=== PATIENT | female | born 1970 | race Caucasian/White ===

== ENCOUNTER 2017-09-24 15:46 | Emergency (ER) | payer OTHER ==
[~2017-09-24] VITALS: Ht 154.9 cm; Wt 83.0 kg
[~2017-09-24 15:46] MED LIST: CETI10 PO; LORA-392 PO; MECL25 PO; MULTCAP PO; VALT500T PO
[2017-09-24 15:49] VITALS: BP 156/81; PULSE 92; RESP 19; TEMP 98.4; O2SAT 100
--- NOTE | 2017-09-24 16:20 | PD ---
HPI Chief Complaint: Syncope/Near-Syncope Time Seen by Provider: 16:08 Travel History International Travel<30 days: No Contact w/Intl Traveler<30days: No Traveled to known affect area: No History of Present Illness HPI 47 year old female presents with a chief complaint of a syncopal episode. She states that this has happened one time previously when she was giving blood but this episode was not the same. She felt a sensation of burning in the epigastric region of her abdomen with a gassy feeling and the began to feel like her BP was dropping. She went to splash water on her face and noticed that she was pale. She then called a coworker to help her. The coworker states that she did in fact lose consciousness but, she denies this. She had no chest pain, palpitations, shortness of breath. No vision changes or headaches. Her last Menstrual period was normal, no excess bleeding. No recent prolonged travel, no recent surgery. PFSH Past Medical History Anxiety: Yes Diminished Hearing: No ?: Not : 2 Para: 2 Tubal Ligation: Yes Past Surgical History Section: Yes Tonsillectomy: Yes Other Surgery: Yes (UMBILICAL HERNIA REPAIRED) Social History Alcohol Use: No Tobacco Use: No Substance Use: No Allergies-Medications (Allergen,Severity, Reaction): Coded Allergies: terbutaline (Unverified Allergy, Severe, HYPOTENSION, 09/24/17) Reported Meds & Prescriptions Reported Meds & Active Scripts Active No Active Prescriptions or Reported Medications Review of Systems Except as stated in HPI: all other systems reviewed are Neg General / Constitutional: No: Fever, Chills Eyes: No: Diploplia, Blurred Vision HENT: Positive: Lightheadedness, No: Headaches, Vertigo Cardiovascular: No: Chest Pain or Discomfort, Palpitations, Irregular Rhythm, Tachycardia Respiratory: No: Shortness of Breath Gastrointestinal: Positive: Nausea, Abdominal Pain Musculoskeletal: No: Weakness Neurologic: Positive: Syncope, No: Weakness, Tremor, Ataxia, Headache, Change in Mentation, Paresthesia, Incontinence, Seizures Physical Exam Narrative GENERAL: patient is laying in bed in no acute distress. SKIN: Warm and dry. HEAD: Atraumatic. Normocephalic. EYES: Pupils equal and round. No scleral icterus. No injection or drainage. ENT: No nasal bleeding or discharge. Mucous membranes pink and moist. NECK: Trachea midline. No JVD. CARDIOVASCULAR: Regular rate and rhythm. RESPIRATORY: No accessory muscle use. Clear to auscultation. Breath sounds equal bilaterally. GASTROINTESTINAL: Abdomen soft, non-tender, nondistended. Hepatic and splenic margins not palpable. MUSCULOSKELETAL: Extremities without clubbing, cyanosis, or edema. No obvious deformities. NEUROLOGICAL: Awake and alert. No obvious cranial nerve deficits. Motor grossly within normal limits. Five out of 5 muscle strength in the arms and legs. Normal speech. PSYCHIATRIC: Appropriate mood and affect; insight and judgment normal. Data Data Last Documented VS Vital Signs Date Time Temp Pulse Resp B/P (MAP) Pulse Ox O2 Delivery O2 Flow Rate FiO2 09/24/17 19:37 09/24/17 19:37 Room Air 09/24/17 19:36 88 14 99 09/24/17 15:49 98.4 Orders Orders Electrocardiogram (09/24/17 ) Basic Metabolic Panel (Bmp) (09/24/17 16:22) Ed Urine Pregnancytest Poc (09/24/17 16:22) Complete Blood Count With Diff (09/24/17 16:22) Troponin I (09/24/17 16:22) Urinalysis - C+S If Indicated (09/24/17 16:22) Ecg Monitoring (09/24/17 16:22) Iv Access Insert/Monitor (09/24/17 16:22) Oximetry (09/24/17 16:22) Sodium Chloride 0.9% Flush (Ns Flush) (09/24/17 16:30) Troponin I (09/24/17 17:41) Ed Discharge Order (09/24/17 19:20) Labs Laboratory Tests Test 09/24/17 16:35 09/24/17 18:10 White Blood Count 8.4 TH/MM3 Red Blood Count 4.46 MIL/MM3 Hemoglobin 12.4 GM/DL Hematocrit 37.6 % Mean Corpuscular Volume 84.3 FL Mean Corpuscular Hemoglobin 27.7 PG Mean Corpuscular Hemoglobin Concent 32.9 % Red Cell Distribution Width 14.5 % Platelet Count 210 TH/MM3 Mean Platelet Volume 9.7 FL Neutrophils (%) (Auto) 55.9 % Lymphocytes (%) (Auto) 37.4 % Monocytes (%) (Auto) 5.8 % Eosinophils (%) (Auto) 0.5 % Basophils (%) (Auto) 0.4 % Neutrophils # (Auto) 4.7 TH/MM3 Lymphocytes # (Auto) 3.1 TH/MM3 Monocytes # (Auto) 0.5 TH/MM3 Eosinophils # (Auto) 0.0 TH/MM3 Basophils # (Auto) 0.0 TH/MM3 CBC Comment DIFF FINAL Differential Comment Urine Color YELLOW Urine Turbidity CLEAR Urine pH 5.5 Urine Specific [place] 1.017 Urine Protein NEG mg/dL Urine Glucose (UA) NEG mg/dL Urine Ketones NEG mg/dL Urine Occult Blood NEG Urine Nitrite NEG Urine Bilirubin NEG Urine Urobilinogen LESS THAN 2.0 MG/DL Urine Leukocyte Esterase NEG Urine RBC 1 /hpf Urine WBC 1 /hpf Urine Squamous Epithelial Cells 3 /hpf Urine Bacteria OCC /hpf Urine Mucus FEW /lpf Microscopic Urinalysis Comment CULT NOT INDICATED Blood Urea Nitrogen 12 MG/DL Creatinine 0.72 MG/DL Random Glucose 100 MG/DL Calcium Level 8.8 MG/DL Sodium Level 136 MEQ/L Potassium Level 5.5 MEQ/L Chloride Level 103 MEQ/L Carbon Dioxide Level 26.4 MEQ/L Anion Gap 7 MEQ/L Estimat Glomerular Filtration Rate 87 ML/MIN Troponin I LESS THAN 0.02 NG/ML LESS THAN 0.02 NG/ML MDM Medical Decision Making Medical Screen Exam Complete: Yes Emergency Medical Condition: Yes Differential Diagnosis vasovagal syncope, Cardiogenic syncope, hypoglycemia, hypotension Narrative Course Patient roomed emerged department, she appears well and in no distress, has had no chest pain or chest discomfort during the symptoms. She did have some mild epigastric pain. She is low risk for cardiac disease. EKG completely within normal limits, she is indicated to and from the bathroom multiple times here, troponin negative 2. Discussed with the patient that she could consider staying in the hospital for atypical ACS symptoms for consideration of stress test but she would rather follow-up as an outpatient, she does have adequate follow-up I think this is a reasonable thing for her to pursue. This time she is stable for discharge. Diagnosis Primary Impression: Syncope Patient Instructions: General Instructions, Syncope (DC) Scripts No Active Prescriptions or Reported Meds Disposition: 01 DISCHARGE HOME Condition: Stable Ben Devi MD Sep 24, 2017 16:20
[2017-09-24] MEDS ORDERED: SODIUM CHLORIDE 0.9% FLUSH 10 ML FLUSH IVF PRN (16:30)
[2017-09-24 16:43] VITALS: O2SAT 100
[2017-09-24 16:55] LABS: AUTOMATED NEUTROPHIL # 4.7 TH/MM3 (1.8-7.7); BASOPHIL % 0.4 % (0.0-2.0); EOSINOPHIL % 0.5 % (0.0-4.0); HEMATOCRIT 37.6 % (35.0-46.0); HEMO FLAGS DIFF FINAL; LYMPH % 37.4 % (9.0-44.0); LYMPHOCYTE # 3.1 TH/MM3 (1.0-4.8); MEAN CELL VOLUME 84.3 FL (80.0-100.0); MEAN CORPUSCULAR HEMOGLOBIN 27.7 PG (27.0-34.0); MEAN CORPUSCULAR HGB CONC 32.9 % (32.0-36.0); MONO % 5.8 % (0.0-8.0); NEUT % 55.9 % (16.0-70.0); PLATELET COUNT 210 TH/MM3 (150-450); RED BLOOD COUNT 4.46 MIL/MM3 (4.00-5.30); RED CELL DISTRIBUTION WIDTH 14.5 % (11.6-17.2); WHITE BLOOD COUNT 8.4 TH/MM3 (4.0-11.0)
[2017-09-24 17:08] LABS: BACTERIA, URINE OCC /hpf; BLOOD, URINE NEG (NEG); COMMENT (UR) CULT NOT INDICATED; CULTURE IF INDICATED CULT NOT INDICATED; GLUCOSE,URINE NEG (NEG); KETONE, URINE NEG (NEG); MUCUS URINE FEW /lpf (OCC); NITRITE,URINE NEG (NEG); PH, URINE 5.5 (5.0-8.5); SQUAMOUS EPITHELIAL CELL URINE 3 /hpf (0-5); URINE COLOR YELLOW (YELLW/STRAW)
[2017-09-24 17:34] LABS: ANION GAP 7 MEQ/L (5-15); BICARBONATE 26.4 MEQ/L (21.0-32.0); BLOOD UREA NITROGEN 12 MG/DL (7-18); CHLORIDE 103 MEQ/L (98-107); GLOMERULAR FILTRATION RATE 87 ML/MIN (>89); SODIUM (NA) 136 MEQ/L (136-145)
[2017-09-24 17:41] LABS: POTASSIUM 5.5 MEQ/L (3.5-5.1)
[2017-09-24 19:36] VITALS: BP 144/76; PULSE 88; RESP 14; O2SAT 99
--- NOTE | 2017-09-25 16:15 | EKG ---
Date Performed: 09/24/2017 Time Performed: 16:10:23 PTAGE: 47 years EKG: Sinus rhythm POSSIBLE RIGHT VENTRICULAR CONDUCTION DELAY Since previous tracing, no significant change noted ANNA GARNER ECG PREVIOUS TRACING : 02/06/2014 07.23 DOCTOR: Mell Rivas Interpretating Date/Time 09/25/2017 16:14:56
== END 2017-09-24 20:20 | disposition home or self-care (01) ==
LOC: NEPC 15:46
DX: R55 Syncope and collapse (principal); R10.13 Epigastric pain
CPT/HCPCS: 80048; 81001; 84484; 84703; 85025; 93005; 99284